=== PATIENT | male | born 1960 | race Caucasian/White ===

== ENCOUNTER → 2021-05-19 08:18 | Outpatient (BNVA) | payer BC, SELFPAY | PROVIDERS: Family Provider Physician Assistant Medical; Referring Provider Dermatology; Visit Provider Podiatrist Foot & Ankle Surgery | DX: M79.673 Pain in unspecified foot (principal); G62.9 Polyneuropathy, unspecified; M25.571 Pain in right ankle and joints of right foot | CPT/HCPCS: 73630 ==

== ENCOUNTER 2021-09-22 15:44 | Outpatient (CLI) | payer BC, SELFPAY | END 2021-09-22 15:45 | disposition home or self-care (01) | LOC: SPT 15:44 | PROVIDERS: Family Provider Physician Assistant Medical; Visit Provider Podiatrist Foot & Ankle Surgery | DX: Z46.89 Encounter for fitting and adjustment of other specified devices (principal); M79.673 Pain in unspecified foot; M25.579 Pain in unspecified ankle and joints of unspecified foot; G62.9 Polyneuropathy, unspecified | CPT/HCPCS: 97760; L3030 ==

== ENCOUNTER 2021-12-10 16:08 | Outpatient (CLI) | payer BC, SELFPAY | END 2021-12-10 16:09 | disposition home or self-care (01) | LOC: SPT 16:09 | PROVIDERS: Family Provider Physician Assistant Medical; Visit Provider Podiatrist Foot & Ankle Surgery | DX: Z46.89 Encounter for fitting and adjustment of other specified devices (principal); M72.2 Plantar fascial fibromatosis | CPT/HCPCS: 97760; L4397 ==

== ENCOUNTER → 2021-12-16 15:21 | Outpatient (BNVA) | payer BC, SELFPAY | PROVIDERS: Family Provider Physician Assistant Medical; Visit Provider Orthopaedic Surgery | DX: M54.6 Pain in thoracic spine (principal); M54.50 Low back pain, unspecified; M47.897 Other spondylosis, lumbosacral region; M47.896 Other spondylosis, lumbar region | CPT/HCPCS: 72072; 72110 ==

== ENCOUNTER 2022-02-02 12:44 | Outpatient (CLI) | payer BC, SELFPAY ==
--- NOTE | 2022-02-02 13:00 | MR_ITS ---
WS: [id number] MRI LUMBAR SPINE NONCONTRAST TECHNIQUE: Sagittal T1, T2 and STIR imaging. Axial T1 and T2 imaging. CLINICAL INFORMATION: M54.9 - Dorsalgia, unspecified COMPARISON: None. FINDINGS: Mild lumbar curve. No acute compression. No high-grade central canal stenosis. L1-L2: Mild annular bulging. Mild facet arthropathy. Spinal canal and foramen are patent. L2-L3: Mild annular bulging. Slight effacement of the ventral thecal sac. LEFT eccentric disc bulging Mild LEFT foraminal narrowing. RIGHT foramen is patent. Mild facet arthropathy. L3-L4: Mild annular bulging with slight narrowing of the RIGHT subarticular recess. Slight impingemen t traversing RIGHT L4 nerve root. Mild facet arthropathy. Mild LEFT foraminal narrowing. L4-L5: Mild annular bulging. Spinal canal and foramen are patent. Mild facet arthropathy. L5-S1: Mild annular bulging with slight effacement of the ventral thecal sac. Mild facet arthropathy. Foramen are patent. Visualized pelvic bony structures: Normal. Paravertebral soft tissues: Normal. MR/MR lumbar spine wo con* [id number] IMPRESSION: 1. Mild lumbar curve. No acute compression. No high-grade central canal stenos is. 2. Mild annular bulging L3-L4 with slight impingement on the RIGHT subarticula r recess and traversing right L4 nerve root. Recommend correlation RIGHT L4 ner ve root symptoms. 3. Mild LEFT L3-L4 foraminal narrowing. 4. LEFT eccentric disc bulging with mild LEFT L2-L3 foraminal narrowing.
--- NOTE | 2022-02-02 13:45 | MR_ITS ---
WS: [id number] MRI THORACIC SPINE WITHOUT CONTRAST TECHNIQUE: Sagittal T1, T2 and STIR imaging. Axial T2 imaging. Noncontrast imaging obtained. CLINICAL INFORMATION: M54.9 - Dorsalgia, unspecified COMPARISON: None. FINDINGS: Mild thoracic kyphosis. Mild thoracic curve. No high-grade central canal stenosis. Cord signal is nor mal. Mild chronic anterior wedging in the mid thoracic spine with endplate Schmorl's nodes. Mild disc bulging T7-T8, T8-T9 and T9-T10. No significant central canal stenosis. Mild facet arthropathy lower thoracic spine. Normal visualized thoracic aorta. MR/MR thoracic spin wo con* [id number] IMPRESSION: 1. Mild thoracic curve. Mild thoracic kyphosis. No significant central canal n arrowing. 2. Cord signal is normal. 3. Mild chronic anterior wedging T7, T8, and T9. No acute compression fracture s. 4. Mild facet arthropathy lower thoracic spine.
== END 2022-02-02 12:45 | disposition home or self-care (01) ==
PROVIDERS: PCP Registered Nurse; Visit Provider Orthopaedic Surgery
DX: M54.9 Dorsalgia, unspecified (principal)
CPT/HCPCS: 72146; 72148

== ENCOUNTER → 2025-04-24 09:12 | Outpatient (BNVA) | payer MEDICARE, SELFPAY | PROVIDERS: PCP Registered Nurse; Visit Provider Nurse Practitioner Family | DX: L90.5 Scar conditions and fibrosis of skin (principal); L98.8 Other specified disorders of the skin and subcutaneous tissue; L81.4 Other melanin hyperpigmentation; L57.8 Other skin changes due to chronic exposure to nonionizing radiation; X32.XXXA Exposure to sunlight, initial encounter; D18.01 Hemangioma of skin and subcutaneous tissue; L73.8 Other specified follicular disorders; L82.1 Other seborrheic keratosis; Z08 Encounter for follow-up examination after completed treatment for malignant neoplasm; Z85.828 Personal history of other malignant neoplasm of skin; D48.5 Neoplasm of uncertain behavior of skin; L57.0 Actinic keratosis | CPT/HCPCS: 11102; 17000; 69100; 99203 ==